=== PATIENT | female | born 1950 | race Hispanic/Latino ===

== ENCOUNTER 2016-11-06 07:56 | Day surgery (SDC) | payer MEDICARE, OTHER ==
[~2016-11-06] VITALS: Ht 149.9 cm; Wt 84.5 kg
[~2016-11-06 07:56] MED LIST: ACET325T51 PO; ACID1TAB2 PO; CALC0.257 PO; CARV12.52 PO; CEFT600V IV; DULO60CA61 PO; GABA600T2 PO; LEVO112T4 PO; LISI10TA PO; LORA1TAB PO; MORP-32 PO; MUPI1OIN5 NASAL; NYST1POW23 MC; OMEP20CA11 PO; OXYC-466 PO; POLY17PO2 PO; PROM25TA14 PO; SENN-133 PO
[2016-11-06] MEDS ORDERED: fentaNYL-PF 50 mCg/mL 2 mL Inj ONE (07:57)
[2016-11-06] MEDS ORDERED: Propofol 10,000 mCg/mL 20 mL Inj ONE (07:57)
--- NOTE | 2016-11-06 08:00 | PCM.HPANE ---
Patient Data Surgeon Admitting Provider: Attending Provider:Chinmay Marie MD Primary Care Physician:Other,Physician Other Provider:Trey Prabhakar Anesthesia Reason for Visit Adenomatous Colon Polyp Ht/WT & BMI Body Mass Index Allergies Coded Allergies: latex (Verified Allergy, Intermediate, Rash, 05/29/16) Past Anesthesia History Anesthesia History: Positive for:: Abnormal Airway, Difficult Intubation, Denies:: Anesthesia Reactions, Fam Anesthesia Reaction, Fam Malignant Hypertherm, Malignant Hyperthermia Diabetes History Hx Diabetes?: No MRSA MRSA: Yes (LEFT ARM, LEFT LEG - RECENT NEG LAB WORK) Medications Active Scripts oxyCODONE-Acetaminophen 10-325 mg 1 Each Tablet1 Tab PO Q4H PRN For Pain #10 TABLET Prov:Zi Hernandez 05/18/16 Lorazepam 1 Mg Tablet1 Mg PO HS #30 TABLET Ref 0 Prov:Beto Sharp MD 03/20/16 Reported Medications Ondansetron 4 Mg Tablet4 Mg PO Q8H PRN ANTONI 11/06/16 Omeprazole 20 Mg Capsule.dr20 Mg PO BID Ref 0 05/29/16 Calcitriol (Rocaltrol)0.25 Mcg Capsule0.25 Mcg PO DAILY 05/29/16 Nystatin 1 Each Powder.ea.1 Each MC 05/29/16 Polyethylene Glycol 3350 17 Gm Powd.pack17 Gm PO BID 05/11/16 Gabapentin 600 Mg Rnhgqq147 Mg PO BID Ref 0 05/11/16 Levothyroxine 112 Mcg Tybrez629 Mcg PO DAILY For Thyroid Replacement Ref 0 05/11/16 Acidophilus/Pectin, Kinney (Acidophilus Caplet)1 Each Tablet2 Each PO BID 04/13/16 Sennosides (Senna)8.6 Mg Krgkuu59.2 Mg PO HS hold for loose stools 04/13/16 Lisinopril 10 Mg Tablet5 Mg PO DIRECTED PRN HYPERtension 04/13/16 Duloxetine 60 Mg Capsule.dr60 Mg PO BID Ref 0 03/13/16 Discontinued Reported Medications Mupirocin Nasal Oint (Bactroban Nasal Oint)1 Gm Oint...g.1 Applic NASAL TID #1 TUBE 05/29/16 Acetaminophen 325 Mg Opihpw482 Mg PO Q4H PRN For Pain Ref 0 05/29/16 Promethazine 25 Mg Ijnxlo01 Mg PO TID PRN For Nausea Ref 0 05/29/16 Carvedilol 12.5 Mg Ucopmi33.5 Mg PO BID Ref 0 05/11/16 Discontinued Scripts Ceftaroline Fosamil Acetate (Teflaro)600 Mg Deot629 Mg IV BID 28 Days Prov:Zi Hernandez 05/18/16 Morphine Sulfate ER 15 Mg Szjumx27 Mg PO Q8hrs #30 TABLET Prov:Beto Sharp MD 03/20/16 History History of ENT Problems?: Yes HEENT History: Positive for:: Abnormal Airway Difficult Intubation Dysphagia (h/o) Denies:: Cataracts Sinus Problem Hx of Heart Problems?: Yes Cardiovascular History: Positive for:: Congestive Heart Failure Edema Heart Murmur Hypertension Denies:: AICD Cardiac Surgery Chest Pain Irregular Heartbeat Pacemaker Thrombophlebitis Valvular Heart Disease Hx of Respiratory Problem?: Yes Respiratory History: Positive for:: Asthma Dyspnea Pneumonia Use of C-PAP Machine Denies:: COPD Chest Surgery Cough Emphysema Hemoptysis Tuberculosis Other Resp Pertinent History: recnet icu admission with intubation and trach, still no voice Hx Neurologic Problems?: Yes Neurological History: Positive for:: Dizziness Headaches (migraines) Denies:: Alzheimer's Disease CVA Dementia Parkinson's Disease Seizures Hx of GI Problems?: Yes Gastrointestinal History: Positive for:: Gastroesphageal Reflux Heartburn Rectal Bleeding (Hemorrhoid) Denies:: Cirrhosis Diverticulitis Gastrointestinal Bleeding Hepatitis Hiatal Hernia Hx of Problems?: Yes Genitourinary History: Positive for:: Urinary Tract Infection Denies:: HX of Hemodialysis Kidney Stones HX of Peritoneal Dialysis: No Other Pertinent History: decreased kidney function, 20 percent reported by sister. no dialysis Female Hx: Denies:: Currently Endometriosis Pelvic Inflammatory Problems with Breasts? Hx Musculoskeletal Problems?: Yes Musculoskeletal History: Positive for:: Back Injury (chronic pain) Joint Replacement (L. total knee replacement 2013) Denies:: Musculoskeletal Trauma Hx of Psycho/Social Problems?: Yes Psycho Social History: Positive for:: Anxiety Hx Depression Denies:: Bipolar Disorder Suicide Attempt Hx Surgeries?: Yes (Thyroidectomy, L and R kneen replacement) Hx Any Other Health Problems?: Yes Other History: Positive for:: Cancer Thyroid Disease Denies:: Endocrine Disease Hospitalization History Blood Transfusions: Positive for:: Blood Transfusions Denies:: Blood Transfuse Reaction Hx Diabetes: No Hx Alcohol Use: NoHx Substance Use: No Smoking Status: Never Smoker Have You Smoked inLast 12 mo: No Stop/Bang NEEMA Category 2: Yes NEEMA Category 4 OutPt Procedure: Yes Risk Assessment Category Category 1A: Patient has history of documented sleep apnea, and HAS NOT received any narcotic, sedative or anesthesia administration during this stay. Category 1B: Patient has history of documented sleep apnea, and HAS received any narcotic , sedative or anesthesia administration during this stay Category 2: Patient has SUSPECTED Obstructive Sleep Apnea, and HAS received any narcotic , sedative or anesthesia administration during this stay. Category 3: Patient has SUSPECTED Obstructive Sleep Apnea and HAS NOT received narcotic, sedative or anesthesia administration during this stay. Category 4: Outpatient in Procedural Areas with known sleep apnea or who screen positive for High Risk via the STOP/BANG questionnaire. Exam Exam General Appearance: Alert, Oriented X3, Cooperative, No Acute Distress HEENT/AIRWAY: MP 2 Lungs: Clear to Auscultation, Normal Air Movement Heart: Exam Unremarkable, Regular Rate/Rhythm, No Murmurs/Rubs/Gallops Plan Impression Patient chart reviewed, patient interviewed and anesthestic plan with risks, benefits, and alternatives discussed, and informed consent obtained. ASA Physical Status: ASA2 Mod Systemic Disease Anesthetic Plan: MAC Bene/Risks/Altern/Consents: Yes HP Complete Prior to Induction: Yes Jorge Luis Muniz MD Nov 06, 2016 08:00
[2016-11-06 08:24] VITALS: BP_SYST 128; BP_SYST 150; BP_DIAS 107; BP_DIAS 84; PULSE 100; PULSE 92; RESP 16; O2SAT 97
[2016-11-06] MEDS ORDERED: ONDA-53 PO (08:37)
[2016-11-06] MEDS: Lactated Ringer's 1,000 ML IV ONE ×3 (08:46→09:31)
[2016-11-06 09:35] VITALS: BP 179/93; PULSE 84; RESP 16; O2SAT 96
[2016-11-06] MEDS ORDERED: Lactated Ringer's 1,000 ML IV SCH (09:38)
--- NOTE | 2016-11-06 09:39 | PCM.ANEP1 ---
Post Anesthesia Phase 1 PACU Phase 1 Assessment Vital Signs Vital Signs Date Time Temp Pulse Resp B/P Pulse Ox O2 Delivery O2 Flow Rate FiO2 11/06/16 09:35 84 16 179/93 96 Room Air 11/06/16 08:24 36.0 92 16 128/84 97 Room Air Anesthetic Administered: MAC Level of Alertness: Awake, talking ESPANA's with Equal Strength: Yes Pain: No Oxygen Delivery: Nasal Cannula Lungs: Clear to Auscultation, Normal Air Movement Jorge Luis Muniz MD Nov 06, 2016 09:39
--- NOTE | 2016-11-06 09:39 | PCM.ANEP2 ---
Post Anesthesia Evaluation ASA/CMS Post Anesthesia VS in Patient's Normal Range?: Yes Resp Stable; Airway Patent?: Yes CV Function & Hydration Stable: Yes Mental Status Recovered?: Yes Pain control Satisfactory?: Yes N/V Control Satisfactory?: Yes Jorge Luis Muniz MD Nov 06, 2016 09:39
[2016-11-06] MEDS ORDERED: Ondansetron 2 mg/mL 2 mL Inj IVPUSH PRN (09:40)
[2016-11-06] MEDS ORDERED: MetoCLOpramide 5 mg/mL 2 mL Inj IVPUSH PRN (09:40)
[2016-11-06 09:48] VITALS: BP 163/95; PULSE 82; RESP 16; O2SAT 97
--- NOTE | 2016-11-06 10:15 | ENDO ---
[address] [address] ENDOSCOPY PROCEDURE PATIENT: JEROMY EASTON : 1950 MR#: [id number] ADMIT: 11/06/2016 JOB ID: [id number] DATE: 11/06/2016 PRIMARY PROVIDER: Concepcion Bauer PROCEDURE: Colonoscopy with hot snare polypectomy. INDICATIONS: A 66-year-old female with intermittent nausea, vomiting and troublesome constipation. She has a personal history of adenomatous colon polyp. Last examination was 2009. Repeat colonoscopy thus pursued. EQUIPMENT: Zong H 180 AL. SEDATION: Monitored anesthesia as provided by Dr. Jorge Luis Muniz. COMPLICATIONS: None identified. BOWEL PREPARATION: Excellent. PROCEDURAL INFORMATION: After the risks and benefits were explained, written and verbal informed consent was obtained. The patient was brought into the endoscopy suite and placed into the left lateral decubitus position. Sedation was achieved using the above stated medications with the addition of oxygen via nasal cannula. A digital rectal examination was accomplished. Moderate internal hemorrhoids were noted. The scope was introduced into the rectum and advanced under direct visualization to the level of the cecum, as identified by the appendiceal orifice and ileocecal valve. The scope was slowly withdrawn to carefully examine the mucosa for any defects or lesions. Retroflexed views obtained in the rectum. Multiple direct views were made through the dentate line for exclusion of pathology. The colon was decompressed. The scope removed the patient who tolerated the procedure well. FINDINGS: There was some mild prep artifact with subepithelial hemorrhage in the right colon. I did not see any evidence of proctitis nor colitis throughout. Brief looks into the terminal ileum demonstrated unremarkable mucosa. In the left colon, there were two polyps removed by way of hot snare. These averaged about 5 mm each. There was some mild diverticulosis in the left colon. Retroflexed views from within the rectum demonstrated moderately engorged internal hemorrhoids. No other significant pathology was appreciated throughout. ENDOSCOPIC DIAGNOSES: 1. Colon polyps. 2. Diverticulosis. 3. Hemorrhoids. RECOMMENDATIONS: 1. Await histopathology. 2. Repeat colonoscopy five years. 3. The patient is encouraged to followup in primary care to ensure her hypothyroid status is addressed. She is encouraged to stay hydrated and as active as possible. 4. Otherwise bowel regimen as previously described in my clinic note from earlier this month was again emphasized.
--- NOTE | 2016-11-07 14:49 | PATH ---
SURGICAL PATHOLOGY Attending Physician:Pk Arrington CASE STATUS: Signed Out PATIENT NAME: JEROMY EASTON PID: [id number] : 1950 DATE COLLECTED:11/06/2016 16:47 SPECIMEN: Colon, Biopsy CLINICAL HISTORY: A: COLON POLYPS X2 FINAL DIAGNOSIS: 1.COLON POLYPS: TUBULAR ADENOMA INVOLVING BOTH BIOPSY FRAGMENTS. ICD10 CODE D12.6 GROSS DESCRIPTION: The specimen is received in formalin, labeled with the patient's name, sublabeled as colon polyps and consists of 2 li-white semitranslucent rubbery glistening round sessile polyps (0.1 cm and 0.2 cm). Section code: (A) 2 intact polyps. Specimen entirely submitted. 11/06/16 JM MICRO DESCRIPTION: See diagnosis. ICD-9 CODES: CPT CODES: 1: 92014 Electronically Signed Out Chinmay Flores MD [facility] [address], [place] [address] Technical component performed at [facility], [address] [place] [address] Ave[address], [place], [address]
== END 2016-11-06 23:59 | disposition home or self-care (01) ==
LOC: END 07:56
PROVIDERS: ATTEND Internal Medicine Gastroenterology
DX: Z12.11 Encounter for screening for malignant neoplasm of colon (principal); Z86.010 Personal history of colon polyps; D12.6 Benign neoplasm of colon, unspecified; K57.32 Diverticulitis of large intestine without perforation or abscess without bleeding; K64.8 Other hemorrhoids; M06.9 Rheumatoid arthritis, unspecified; J45.909 Unspecified asthma, uncomplicated; E03.9 Hypothyroidism, unspecified; G89.4 Chronic pain syndrome; Z79.899 Other long term (current) drug therapy; Z79.891 Long term (current) use of opiate analgesic
CPT/HCPCS: 45385; J2250; J7120

== ENCOUNTER 2017-02-19 12:55 | Day surgery (SDC) | payer MEDICARE, OTHER ==
[~2017-02-19 12:55] MED LIST changes: -ACET325T51 PO; -CARV12.52 PO; -CEFT600V IV; +Lactated Ringer's 1,000 ML IV ONE; +Lidocaine Topical 2% 30 mL Jelly ONE; -MORP-32 PO; -MUPI1OIN5 NASAL; +ONDA-53 PO; -PROM25TA14 PO
== END 2017-02-19 23:59 | disposition home or self-care (01) ==
LOC: END 12:55
PROVIDERS: ATTEND Internal Medicine Gastroenterology
DX: R13.10 Dysphagia, unspecified (principal); I10 Essential (primary) hypertension; Z79.899 Other long term (current) drug therapy

== ENCOUNTER 2017-02-23 06:10 | Emergency (ER) | payer MEDICARE, OTHER ==
[~2017-02-23 06:10] MED LIST changes: -Lactated Ringer's 1,000 ML IV ONE; -Lidocaine Topical 2% 30 mL Jelly ONE
[2017-02-23 06:15] VITALS: BP 156/104; PULSE 109; RESP 26; O2SAT 94
--- NOTE | 2017-02-23 06:30 | ED.REPORT ---
HPI-Dyspnea / Wheezing Date of Service February 23, 2017 ED Provider: Manuel Mak MD Patient is a 66 year old female with a history of asthma, hypertension and CHF who presents to the ED complaining of shortness of breath onset last night. Associated symptoms include a productive cough and a tightness in her chest. She denies fever, chills, diaphoresis, sore throat, or swelling of her legs. The patient reports that is has gotten progressively worse this morning. She states that she has had similar symptoms due to an asthma attack and CHF in 2006 and 2009. The patient's granddaughter has a cold and she has recently been exposed but states her symptoms do not feel like a cold. Patient reports that she has not had any medication changes and currently takes Doxycycline. Nursing Notes Stated Complaint: DIFFICULTY BREATHING Chief Complaint: Respiratory Complaints Nursing Notes Reviewed: Yes ([employer], Remember The Member not reconciled) Allergies: Coded Allergies: latex (Verified Allergy, Intermediate, Rash, 05/29/16) promethazine (Verified Allergy, Unknown, 02/23/17) Scheduled Calcitriol (Rocaltrol) 0.25 Mcg Capsule 0.25 MCG PO DAILY Doxycycline Hyclate (Doxycycline Hyclate) 100 Mg Capsule 100 MG PO DAILY Duloxetine (Duloxetine) 60 Mg Capsule.dr 60 MG PO DAILY Levothyroxine (Levothyroxine) 175 Mcg Tablet 175 MCG PO DAILY Lisinopril (Lisinopril) 10 Mg Tablet 5 MG PO DAILY Sennosides (Senna) 8.6 Mg Tablet 8.6 MG PO HS hold for loose stools Scheduled PRN Nystatin (Nystatin) 1 Each Powder.ea. 1 EACH MC PRN For Itching Ondansetron (Ondansetron) 4 Mg Tablet 4 MG PO Q8H PRN PRN ANTONI oxyCODONE-Acetaminophen 10-325 mg (oxyCODONE-Acetaminophen 10-325 mg) 1 Each Tablet 1 TAB PO Q4H PRN PRN For Pain General Time Seen by MD: 06:12 Chief Complaint Shortness of breath Hx Obtained From: Patient Arrived By: Walk-in Onset Occurred: Yesterday Symptom Duration: Since onset Recent Healthcare: No recent hospitalization, Recent doctor visit Similar Sx Previous: Yes Past Medical History Past Medical History Notes: FULL CODE Dr. Mark Olivera, Orthopedic surgeon [place], [place] office [phone] Past Medical History Difficult airway per anesthesia note October 2016 Admitted from 03/13/2016-03/20/2016 for sepsis, MRSA bacteremia, left lower cellulitis, acute kidney injury and encephalopathy. 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 Obstructive sleep apnea - uses CPAP at home, on modafinil Hypertension - carvedilol 12.5 mg twice a day, lisinopril 20 mg daily Chronic pain Hypothyroidism Migraine headaches History of GERD Past Surgical History left knee replacement 2013 h/o right knee replacement Thyroidectomy s/p trach Family History noncontributory Smoking History Never Smoker Social History Currently residing at [facility] Alcohol Use: Denies alcohol use Drug Use: Denies drug use Other Social History: Good social support, Local resident Ambulatory Status Independent Review of Systems Constitutional: Denies: Chills, Fever Ears / Nose / Throat: Denies: Sore throat Respiratory: Reports: Prod cough, clear, Shortness of breath Cardiovascular: Reports: Chest pain (tightness) Musculoskeletal: Denies: Extremity swelling Complete sys rev & neg: except as marked. Physical Exam Initial Vital Signs Vital Signs (First) Date Time Temp Pulse Resp B/P Pulse Ox O2 Delivery O2 Flow Rate FiO2 02/23/17 06:15 36.8 109 26 156/104 94 Room Air Initial VS: Reviewed General/Constitutional: Awake, Alert Neck: Atraumatic, Full range of motion, No JVD RESPIRATORY: visibly dyspneic scattered wheezes in all mcmahon Cardiovascular: Regular rhythm, Heart sounds NL, No murmurs Heart Rate / Rhythm: Positive: Tachycardia Skin: Atraumatic, Color NL, No rash, Warm, Dry Neurologic: Oriented X3, Speech NL, No motor deficits, No sensory deficits Head / Eyes: Atraumatic, Normocephalic, PERRL, EOMI Psychiatric: Affect NL, Mood NL Interpretation & Diagnostics Interpretation & Diagnostics: ANGIO: IMPRESSION: 1. Anterior, intermediate density right mediastinal mass which is increased in size when compared with the studies from March,. 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 Vascular surgery consultation recommended. 2. Right midlung atelectasis, likely secondary to anterior mediastinal mass. 3. No acute pulmonary embolus. Dictated by: Megan Feliciano M.D. on 02/23/2017 at 9:14 Approved by: Megan Feliciano M.D. on 02/23/2017 at 9:23 Lab Results Interpretation Result Diagram: 02/23/17 0705 02/23/17 0705 Test 02/23/17 07:05 02/23/17 08:36 White Blood Count 13.1th/mm3 (3.8-10.1) Red Blood Count 4.56mil/mm3 (3.90-5.20) Hemoglobin 14.0g/dL (12.0-15.6) Hematocrit 41.2% (35.0-46.0) Mean Corpuscular Volume 90.4fL (81-100) Mean Corpuscular Hemoglobin 30.7pg (27.0-35.0) Mean Corpuscular Hemoglobin Concent 34.0% (32.0-37.0) Red Cell Distribution Width 14.9% (12.3-15.4) Platelet Count 219bil/L (150-400) Neutrophils (%) (Auto) 84.7% (40-74) Lymphocytes (%) (Auto) 8.2% (14-46) Monocytes (%) (Auto) 4.6% (4-12) Eosinophils (%) (Auto) 2.1% (0-5) Basophils (%) (Auto) 0.2% (0-3) Sodium Level 138mEq/L (134-144) Potassium Level 4.4mEq/L (3.5-5.2) Chloride Level 99mEq/L (97-108) Carbon Dioxide Level 21mmol/L (18-29) Blood Urea Nitrogen 35mg/dL (8-27) Creatinine 1.46mg/dL (0.57-1.00) Estimat Glomerular Filtration Rate 51mL/min (>59) Glucose Level 111mg/dL (60-99) Lactic Acid Level 1.9mmol/L (0.4-2.0) Calcium Level 9.8mg/dL (8.5-10.1) Magnesium Level 1.9mg/dL (1.6-2.6) Total Bilirubin 0.3mg/dL (0.0-1.2) Aspartate Amino Transf (AST/SGOT) 30U/L (0-50) Alanine Aminotransferase (ALT/SGPT) 10U/L (0-32) Alkaline Phosphatase 100U/L (25-165) Troponin T 0.010ug/L (0.0-0.011) Pro-B-Type Natriuretic Peptide 422.5pg/mL (0-301) Total Protein 7.7g/dL (6.4-8.4) Albumin 4.3g/dL (3.4-5.0) Urine Color Yellow (YELLOW) Urine Appearance Clear (CLEAR,HAZY) Urine pH 5.0 (5.0-8.0) Urine Specific [place] 1.016 (1.003-1.035) Urine Protein Negativemg/dL (NEG,TRACE) Urine Glucose (UA) Negativemg/dL (NEGATIVE) Urine Ketones Negativemg/dL (NEGATIVE) Urine Occult Blood Negative (NEGATIVE) Urine Nitrite Negative (NEGATIVE) Urine Bilirubin Negative (NEGATIVE) Urine Urobilinogen Normalmg/dL (NORMAL) Urine Leukocyte Esterase Trace (NEGATIVE) Urine RBC 0-2/hpf (0-2) Urine WBC 6-10/hpf (0-5) Urine Epithelial Cells Few/hpf (NONE-MOD) Urine Crystals None seen (NONE SEEN) Urine Bacteria None/hpf (NONE-FEW) Urine Hyaline Casts None/lpf (NONE) Urine Granular Casts None seen (NONE SEEN) Urine Waxy Casts None seen (NONE SEEN) Urine Red Blood Cell Casts None seen (NONE SEEN) Urine White Blood Cell Casts None seen (NONE SEEN) Urine Mucus None seen (None Seen) Urine Trichomonas None seen (NONE SEEN) Urine Yeast None (NONE SEEN) Urinalysis Comment None Urine Culture Reflexed Indicated Lab Results Interpretation: CBC positive leukocytosis [employer] WORK SPECIALIST mild renal insufficiency Blood cultures [address] Arguleles normal Troponin #1 negative UA with trace epithelial cells and 6-10 white cells, suggestive of contaminant rather than primary infection Pro BNP marginally elevated of uncertain clinical significance ECG Interpretation ECG Interpretation: Sinus tachycardia, rate 111 Q waves anterior and inferior unchanged from March 2016 Time: 07:20 Interpreted by: ED physician X-Ray Chest Interpretation Chest Xray Interpretation: IMPRESSION: Focal right midlung atelectasis. This finding was present to a lesser degree on a prior study from May,. Given the chronicity of this finding, CT of the chest with contrast is recommended to exclude a centrally obstructing right hilar lesion. Dictated by: Megan Feliciano M.D. on 02/23/2017 at 7:59 Approved by: Megan Feliciano M.D. on 02/23/2017 at 8:01 View: Portable, 1 view Interpretation / Wet Read by: Interpret - Radiologist Re-Eval/Medical Decision Med Decision/Clinical Course This is a 66-year-old female with complex past medical history presents with acute onset of shortness of breath starting last night. On arrival, the patient's tachypnea, mildly dyspneic, satting only around 90% on room air, tachycardic, and with profound bronchospasm on clinical exam. SHe does have a history of mild asthma, but this is not typical and she reports her asthma really has not acted up recently. She is not a clearcut fever but reports a cough, some clear yellow sputum which she showed me. Also has a history of what sounds like mild CHF in the past as well. She does not have a previous history of known venous thromboembolism. The patient received multiple rounds of nebulizer therapy given the bronchospasm by history of asthma, she received empiric steroids, and she is improved-but still on the tachypnea in the mid 20s, and still with a marginal although borderline tolerable O2 sat as well. Clinically she also has improved air movement, but is still mildly bronchospastic. Chest x-ray reveals a chronic right hemidiaphragm elevation, there is also concern such that the radiologist recommended CT imaging. 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 I talked with the radiologist, and then consulted and discussed the case with vascular surgeon in [place], who reviewed the images and indicates given the case complexity recommends transfer to [facility]. He is much more concerned that this is likely mycotic in origin. meanwhile I started the patient on ceftriaxone and vancomycin.following blood cultures. Images were PAX'ed to [facility], and I discusssed the case with Dr. Cummins of the vascular service who indicates the patient is to be transferred to the [facility] for continued management. Indicates the prognosis is extremely grim given the nature of the aneurysm and complexity-let alone the patient's comorbidities. He recommended going ahead and giving a dose of labetalol in the department to help with blood pressure management, the hospital is experiencing part of a nationwide shortage of labetalol which is not available-so does metoprolol was substituted. The plan is to answer to [facility] for continued management, she will go [place]. I have communicated the critical nature of the problem to patient and family and attempted to communicate that at this point she is being transferred for expert evaluation and management, but that definitive treatment and solution may not be available. At this time overall the patient has a sizable and severe aneurysm, it remains a bit unclear if that is truly a precipitating factor in her acute dyspnea today , or simply an incidental finding with a poor clinical prognosis. She does have a bronchospasm, is limited lung mcmahon by the large right hemidiaphragm elevation, and remains on brochodilator therapy. Recommend continued management for what may be an asthma exacerbation. Source of Hx: Old records Re-Evaluation/Progress #1: Time of Eval: 08:04 )( Re-Eval Resp / Chest: Mild wheezing Patient Status: Mild relief Re-Evaluation/Progress #2: Time of Eval: 11:49 )( Re-Eval Resp / Chest: Mild wheezing Patient Status: Mild relief Re-Evaluation/Progress Note: Discussed all results and plan for transfer to [facility] after consult Re-Evaluation/Progress #3: Time of Eval: 13:50 Patient Status: Condition improved, Mild relief Re-Evaluation/Progress Note: Less wheezing. Discussed plan for transfer to [facility] instead of [facility]. Consultation #1: Call Returned at: 10:18 Note: Consult with Dr. Kaleigh Kwan, discussed patient's case and plan for possible transfer. Will call back Consultation #2: Consulted With: Surgeon (Vascular) Call Returned at: 11:32 Note: Consult with Dr. Jose G Saba, vascular surgeon, who says it does not look like a subclavian aneurysm but more on the innominate artery and might be infectious. Recommends the patient be transferred to [facility]. Consultation #3: Consulted With: Surgeon (vascular) Call Returned at: 13:08 Forming Process Worker: Agrees with eval, Agrees with plan, Accepts admit Note: Consult with Dr. Cummins, vascular surgeon, who recommends the patient be transferred to [facility]. Consultation #4: Call Returned at: 14:24 Note: Consult with Pharmacy, the patient was initially planned to give Labetalol but there is a shortage. Discussed Metoprolol as an alternative Differential Diagnosis: Positive: Asthma, Negative: Acute coronary syndrome, Cardiogenic shock, Congestive heart failure, Dysrhythmia, Hyperventilation, Myocardial infarction, Pneumonia, Pneumothorax, Pulmonary embolism Counseled Regarding: Diagnosis, Lab results, Need for admission Discharge & Departure Departure Notes Aneurysm of innominate artery is not in the diagnosis list options, there is additional concern for possible mycotic origin Impression: Primary Impression: Aneurysm Additional Impressions: Dyspnea Dyspnea type: unspecified Qualified Code: R06.00 - Dyspnea, unspecified Bronchospasm, acute Discharge Condition All VS Reviewed: Yes Condition: Stable Crit Care Except Billable Proc Time Spent: 30-74 minutes Services Performed: Patient management by me, Time spent at bedside, Reviewing test results, Reviewing imaging, Discussing patient care, Documentation in record, Time with fam/surrogate, Other Scribe Attestation Portions of this note were transcribed by Tasha Goyal. I, Dr. Mak personally performed the history, physical exam and medical decision-making; I reviewed and confirmed the accuracy of the information in the transcribed note. Signed by: Mumtaz Kim, 02/23/17 and [id number] Manuel Mak MD February 23, 2017 06:30 Angie Goyal February 23, 2017 06:48
[2017-02-23] MEDS ORDERED: Albuterol 2.5 mg/3 mL Inhalation Solution NEB ONE ×3 (06:50→15:20)
[2017-02-23] MEDS ORDERED: Ipratropium 0.02% 0.5 mg/2.5 mL Inhalation Solution NEB ONE (06:50)
[2017-02-23] MEDS ORDERED: MethylprednisoLONE Sodium Succinate 62.5 mg/mL 2 mL Inj IVPUSH ONE (06:50)
[2017-02-23 07:06] VITALS: PULSE 106; RESP 26; O2SAT 90
[2017-02-23 07:51] LABS: BASOPHILS % (AUTO) 0.2 % (0-3); EOSINOPHILS % (AUTO) 2.1 % (0-5); MONOCYTES % (AUTO) 4.6 % (4-12); Mean Corpuscular Hemoglobin 30.7 pg (27.0-35.0); Mean Corpuscular Volume 90.4 fL (81-100); NEUTROPHILS % (AUTO) 84.7 % (40-74); Platelet Count 219 bil/L (150-400)
[2017-02-23 08:00] VITALS: BP 159/69; PULSE 118; RESP 30; O2SAT 91
--- NOTE | 2017-02-23 08:03 | DRSVH ---
CORRECTED CC PROVIDER ON 03/19/17 PROCEDURE: X-RAY CHEST ONE VIEW, PORTABLE ([id number]) INDICATIONS: SOB TECHNIQUE: One view of the chest was acquired. COMPARISON: [facility], CR, XR CHEST 1VW (PORTABLE), 05/29/2016, 17:01. FINDINGS: Surgical changes and devices: None. Lungs and pleura: Focal atelectasis is present within the right midlung with resultant volume loss. T his finding was visualized on the comparison plain film dated 05/29/16, but is increased in severity. The left lung is clear. No pleural effusion or pneumothorax. Mediastinum: Mediastinal contours appear normal. Heart size is normal. Bones and chest wall: No suspicious bony lesions. Overlying soft tissues appear unremarkable. IMPRESSION: Focal right midlung atelectasis. This finding was present to a lesser degree on a prior s tudy from May,. Given the chronicity of this finding, CT of the chest with contrast is recomm ended to exclude a centrally obstructing right hilar lesion. Dictated by: Megan Feliciano M.D. on 02/23/2017 at 7:59 Approved by: Megan Feliciano M.D. on 02/23/2017 at 8:01
[2017-02-23] MEDS ORDERED: cefTRIAXone Inj 2,000 MG in Dextrose 5% Minibag Plus 50 ML IV ONE (08:15)
[2017-02-23] MEDS ORDERED: Azithromycin Inj 500 MG in Dextrose 5% w/Vial Mate 250 ML IV ONE (08:15)
[2017-02-23 08:18] LABS: TROPONIN T 0.01 ug/L (0.0-0.011)
[2017-02-23 08:29] LABS: Magnesium 1.9 mg/dL (1.6-2.6)
[2017-02-23] MEDS ORDERED: LEVO175T5 PO (08:40)
[2017-02-23] MEDS ORDERED: DOXY100C2 PO (08:40)
[2017-02-23 08:52] LABS: APPEARANCE,URINE CLEAR (CLEAR,HAZY); COLOR,URINE YELLOW (YELLOW)
[2017-02-23 08:53] LABS: OCCULT BLOOD,URINE NEGATIVE (NEGATIVE); UROBILINOGEN,URINE NORMAL (NORMAL)
[2017-02-23] MEDS ORDERED: 0.9% Sodium Chloride 500 ML IV ONE (08:55)
--- NOTE | 2017-02-23 09:25 | DRSVH ---
PROCEDURE: CT ANGIO CHEST PULMONARY EMBOLISM ([id number]) INDICATIONS: SOB, hypoxia TECHNIQUE: After the administration of intravenous contrast, 2 mm thick sections acquired from the pulmonary api esau to the posterior costophrenic angles. 3-dimensional maximum intensity projection (MIP) coronal a nd sagittal reformats were then acquired through the thorax. For radiation dose reduction, the follo wing was used: automated exposure control, adjustment of mA and/or kV according to patient size. COMPARISON: [facility], CT, CT ANGIO NECK, 04/18/2016, 16:22. [facility], CT , CT ANGIO CHEST PE, 04/17/2016, 12:31. [facility], CR, XR CHEST 1VW (PORTABLE), 6, 15:21. [facility], CT, CHEST ANGIO-PE, 11/09/2013, 17:09. FINDINGS: Image quality: Excellent. Pulmonary arteries: Pulmonary arteries are normal in size, and demonstrate no intraluminal filling d efects to suggest central pulmonary embolism. Lungs and pleura: Platelike atelectasis is present in the right midlung, likely secondary to the ante rior right mediastinal mass. Lung volumes are low. No acute airspace opacities. No pleural effusion o r pneumothorax. There is leftward tracheal deviation. Mediastinum: There is an intermediate density cystic lesion within the right anterior mediastinum wh ich measures 5.9 x 5.4 x 6.2 cm. This is increased in size when compared with the study dated 04/17/16 where the cystic lesion measured approximately 4.1 x 4.4 cm. 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 Heart size is normal, without pericardial effusion. No mediast inal or hilar adenopathy. Thoracic aorta is normal in caliber and enhancement. Scattered atheromatou s calcifications are present within the aortic arch. Esophagus is normal in caliber, without hiatal hernia. Bones and chest wall: No suspicious bony lesions. Ribs and thoracic spine appear intact throughout. Severe degenerative changes are present throughout the thoracic spine. The right thyroid lobe is non visualized. The left thyroid lobe is unremarkable. No axillary or supraclavicular adenopathy. Abdomen: Visualized upper abdominal solid organs appear normal in the early arterial phase of enhanc ement. IMPRESSION: 1. Anterior, intermediate density right mediastinal mass which is increased in size when compared wit h the studies from March,. 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 Vascular surgery consultation recommended. 2. Right midlung atelectasis, likely secondary to anterior mediastinal mass. 3. No acute pulmonary embolus. Dictated by: Megan Feliciano M.D. on 02/23/2017 at 9:14 Approved by: Megan Feliciano M.D. on 02/23/2017 at 9:23
[2017-02-23] MEDS ORDERED: Vancomycin Dose per Pharmacist XX ONE (11:40)
[2017-02-23] MEDS ORDERED: Vancomycin Inj 1,500 MG in 0.9% Sodium Chloride 500 ML IV ONE (12:00)
[2017-02-23] MEDS ORDERED: Labetalol 5 mg/mL 4 mL Inj IVPUSH ONE (13:15)
[2017-02-23 14:08] VITALS: BP 157/76; PULSE 92; O2SAT 96
[2017-02-23] MEDS ORDERED: MeTOProlol 1 mg/mL 5 mL Inj IVPUSH ONE (14:35)
[2017-02-23 15:35] VITALS: PULSE 83; RESP 22; O2SAT 92
== END 2017-02-23 16:15 | disposition short-term general hospital (02) ==
LOC: SED 06:10
DX: I72.9 Aneurysm of unspecified site (principal); J98.01 Acute bronchospasm; I11.0 Hypertensive heart disease with heart failure; I50.9 Heart failure, unspecified; K21.9 Gastro-esophageal reflux disease without esophagitis; E03.9 Hypothyroidism, unspecified; Z79.899 Other long term (current) drug therapy; Z88.8 Allergy status to other drugs, medicaments and biological substances; Z91.040 Latex allergy status
CPT/HCPCS: 36415; 71010; 71275; 80053; 81000; 83605; 83735; 83880; 84484; 85025; 87040; 87086; 87088; 93005; 94644; 94645; 96365; 96366; 96367; 96375; 99291; J0456; J0696; J2930; J3370; J7040; J7613; Q9967